=== PATIENT | female | born 1990 | race American Indian/Alaskan Native ===

== ENCOUNTER 2017-07-27 00:34 | Emergency (ER) | payer BC ==
[2017-07-27 01:19] VITALS: BP 131/85
[2017-07-27] MEDS ORDERED: PEPCID IV ONE (01:40)
[2017-07-27] MEDS ORDERED: ZOFRAN IV ONE (01:58)
--- NOTE | 2017-07-27 03:02 | Emergency Department Report ---
HPI - General Chief Complaint: Allergic Reaction Time Seen by Provider: 07/27/17 01:37 - HPI HPI: Pt is a 26 yo female here for allergic reaction. pt states she began with the rash all over her body and is not sure what caused it this time. pt states that she had no trouble breathing, but initally did have some chest tightness that she stated resolved. Pt denied any sensation of tongue swelling . Pt states she already takes Pepcid daily and is concerned about taking Prednisone because she states it makes her blood sugar go up but she realizes that it will help her allergic urticaria as she states this happens often. Pt denied ever seeing an mix crusher operator about this problem. ED Past Medical Hx - Past Medical History Previous Medical History?: Yes Hx Diabetes: Yes (Not taking any medications) - Surgical History Past Surgical History?: No - Social History Smoking Status: Never Smoker Substance Use Type: None - Medications Home Medications: Home Medications Medication Instructions Recorded Confirmed Last Taken Type Famotidine [Pepcid] 20 mg PO DAILY #5 tablet 07/27/17 Unknown Rx Prednisone 50 mg PO DAILY #5 tablet 07/27/17 Unknown Rx diphenhydrAMINE [Benadryl CAP] 50 mg PO Q8HR #15 capsule 07/27/17 Unknown Rx ED Review of Systems ROS: Stated complaint: ALLERGIC REACTION Other details as noted in HPI Comment: All other systems reviewed and negative Respiratory: no symptoms reported Cardiovascular: chest pain (resolved) Skin: rash, pruritus Physical Exam - Physical Exam Vital Signs: Vital Signs 07/27/17 07/27/17 07/27/17 00:54 01:00 01:14 Temperature 97.8 F Pulse Rate 98 H Respiratory 18 18 Rate Blood Pressure 131/85 131/85 O2 Sat by Pulse 88 100 99 Oximetry General: PE: awake alert nt female in no distress Skin: diffuse urticaria ; with excoriations HEENT: normocephalic, eyes:eomi, ears: patent Lungs:clear Heart: rrr Abd: soft, nd +Bs, nt Ext: dp pulses 2+; NO EDEMA Body Four View: 1 - urticaria 2 - urticaria 3 - urticaria ED Course Vital Signs 07/27/17 07/27/17 07/27/17 00:54 01:00 01:14 Temperature 97.8 F Pulse Rate 98 H Respiratory 18 18 Rate Blood Pressure 131/85 131/85 O2 Sat by Pulse 88 100 99 Oximetry Critical care attestation.: If time is entered above; I have spent that time in minutes in the direct care of this critically ill patient, excluding procedure time. ED Disposition Clinical Impression: Urticaria Disposition: - TO HOME OR SELFCARE Condition: Stable Instructions: Urticaria (ED) Additional Instructions: return sooner if worse or if further concerns and be sure to follow up with your primary care doctor or the referral physician given here; be aware that the Prednisone may make your blood sugar go up; continue with your current daily Pepcid dose for 5 days Prescriptions: diphenhydrAMINE [Benadryl CAP] 50 mg PO Q8HR #15 capsule Famotidine [Pepcid] 20 mg PO DAILY #5 tablet Prednisone 50 mg PO DAILY #5 tablet Referrals: LUIZ JERRY MD [Staff Physician] - 2-3 Days PRIMARY CAREMD [Primary Care Provider] - 3-5 Days
== END 2017-07-27 03:55 | disposition home or self-care (01) ==
LOC: ED 00:34
DX: L50.9 Urticaria, unspecified (principal); E11.9 Type 2 diabetes mellitus without complications
CPT/HCPCS: 96374; 96375; 99283; J2405; J2930

== ENCOUNTER 2018-01-20 11:30 | Emergency (ER) | payer SELFPAY ==
--- NOTE | 2018-01-20 12:25 | Emergency Department Report ---
Blank Doc - Documentation Documentation: Patient is 27-year-old black female who is presenting with vaginal bleeding. Patient states she is approximately 8 weeks and last night started with spotting that has now progressed to full on vaginal bleeding. Patient has no dizziness at this time. Patient does have some lower abdominal crampiness. Patient will be given ultrasound we will also check a beta Quant. Patient does not know her blood type which will also be checked as well.
[2018-01-20 13:14] LABS: Bacteria,Urine 1+ /HPF (Negative); Bilirubin,Urine NEG (Negative); Blood,Urine SM (Negative); Color,Urine Yellow (Yellow); Mucus,Urine 2+ /HPF; Sperm,Urine FEW /HPF (NP); Urobilinogen,Urine < 2.0 mg/dL (<2.0)
--- NOTE | 2018-01-20 15:11 | Emergency Department Report ---
ED HPI - General Chief complaint: Vaginal Bleeding Stated complaint: MISCARRAGE Time Seen by Provider: 01/20/18 12:20 Source: patient Mode of arrival: Ambulatory Limitations: No Limitations - History of Present Illness Initial comments: This is a 27 y.o. female that presents with vaginal bleeding for 2 days. Patient went to [place] 01/12/2018 for severe constipation and this toe diagnosed with 8 weeks gestation. She noticed spotting yesterday with each white but today on waking up she noticed increased bleeding and decided to come in. Patient is worried possibly miscarriage, because she has had 2 miscarriages in the past. Reports symptoms presenting as prior miscarriages did. Menstrual period was 10/09/2017. A2. Patient reports cramping, vaginal bleeding, and nausea and vomiting. Denies fever, chest pain, shortness of breath, frequency, urgency, and dysuria. MD Complaint: vaginal bleeding -: days(s) (2 days) Radiation: none Severity: moderate Severity scale (0 -10): 7 Quality: cramping Consistency: intermittent Improves with: none Worsens with: none Associated symptoms: nausea/vomiting, vaginal bleeding, abdominal pain (cramping ). denies: vaginal discharge, dysuria, headache, vision changes, malaise, dysparuenia, rash, seizure, shortness of breath, syncope, weakness Vaginal bleeding: light :: Yes Number of weeks : 8 OB History - Current : no complications OB History - Previous Pregnancies: miscarriage (x 2) Last menstrual period: 10/09/17 Pre- care: none - Related Data : 3 Para: 0 Ab: 2 Previous Rx's Medication Instructions Recorded Last Taken Type Famotidine [Pepcid] 20 mg PO DAILY #5 tablet 07/27/17 Unknown Rx Prednisone 50 mg PO DAILY #5 tablet 07/27/17 Unknown Rx diphenhydrAMINE [Benadryl CAP] 50 mg PO Q8HR #15 capsule 07/27/17 Unknown Rx Allergies Allergy/AdvReac Type Severity Reaction Status Date / Time No Known Allergies Allergy Unverified 07/03/16 10:46 ED Review of Systems ROS: Stated complaint: MISCARRAGE Other details as noted in HPI Constitutional: denies: chills, fever Respiratory: denies: cough, shortness of breath, wheezing Cardiovascular: denies: chest pain, palpitations Gastrointestinal: abdominal pain (cramping), nausea, vomiting. denies: diarrhea Neurological: denies: headache, weakness, paresthesias Psychiatric: denies: anxiety, depression ED Past Medical Hx - Past Medical History Previous Medical History?: Yes Hx Diabetes: Yes (Not taking any medications) Additional medical history: Miscarriage x 2, Left ankle and foot pain - Surgical History Past Surgical History?: No - Social History Smoking Status: Never Smoker Substance Use Type: None - Medications Home Medications: Home Medications Medication Instructions Recorded Confirmed Last Taken Type Famotidine [Pepcid] 20 mg PO DAILY #5 tablet 07/27/17 Unknown Rx Prednisone 50 mg PO DAILY #5 tablet 07/27/17 Unknown Rx diphenhydrAMINE [Benadryl CAP] 50 mg PO Q8HR #15 capsule 07/27/17 Unknown Rx ED Physical Exam - General Limitations: No Limitations General appearance: alert, in no apparent distress, obese - Respiratory Respiratory exam: Present: normal lung sounds bilaterally. Absent: respiratory distress - Cardiovascular Cardiovascular Exam: Present: regular rate, normal rhythm, normal heart sounds. Absent: systolic murmur, diastolic murmur, rubs, gallop - GI/Abdominal GI/Abdominal exam: Present: soft, normal bowel sounds - Neurological Exam Neurological exam: Present: alert, oriented X3, normal gait - Psychiatric Psychiatric exam: Present: normal affect, normal mood - Skin Skin exam: Present: warm, dry, intact, normal color. Absent: rash ED Course Vital Signs 01/20/18 11:35 Temperature 97.9 F Pulse Rate 93 H Respiratory 18 Rate Blood Pressure 150/82 O2 Sat by Pulse 100 Oximetry ED Medical Decision Making - Radiology Data Radiology results: report reviewed Transvaginal and OB US: Single viable intrauterine gestation. - Medical Decision Making This is a 27 y.o. Female presents with vaginal bleeding x 2 days. She is 8 weeks gestation. A2. Established OB patient at [place], but she doesn't have a specific physician there. First appointment 01/29/2018. Patient examined in fast track by me and Dr. Polanco. Obtained UA, hcg quant, and OB US. HCG 70756. US obtained and read by radiologist. Single viable intrauterine gestation. Patient informed of results. Advised to have repeat HCG quant and US in 24-48 hours if bleeding increase. Follow up with FRONT OFFICE MANAGER in 24-48 hours. Critical care attestation.: If time is entered above; I have spent that time in minutes in the direct care of this critically ill patient, excluding procedure time. ED Disposition Clinical Impression: Vaginal bleeding affecting early Disposition: TO HOME OR SELFCARE Is pt being admited?: No Does the pt Need Aspirin: No Condition: Stable Instructions: (ED), Threatened Miscarriage (ED) Additional Instructions: Have repeat HCG quant and US in 24-48 hours. Follow up with FRONT OFFICE MANAGER in 24-48 hours. HCG quant 67860 today. Referrals: MICHELLE SHAH MD [Staff Physician] - 3-5 Days [facility] [Provider Group] - 3-5 Days [facility] [Provider Group] - 3-5 Days Forms: Work/School Release Form(ED) Time of Disposition: 16:08 Print Language: GEORGIAN
--- NOTE | 2018-01-20 15:16 | Ultrasound Report ---
Transvaginal sonography: History: Vaginal bleeding. Findings: Uterus measures 9.9 x 6.2 x 7.1 cm. Single intrauterine gestation is noted. CRL of the fetus 20.3 mm corresponding to 8 weeks and 4 days of gestation. Ultrasound gestational age 8weeks and 4 days. Right ovary 2.4 x 2 x 2.4 cm. Left ovary 2.5 x 2 x 1.3 cm. No mass. heart rate 176 per minute. Impression: Single viable intrauterine gestation.
[2018-01-20 16:37] VITALS: BP 132/80
== END 2018-01-20 16:38 | disposition home or self-care (01) ==
LOC: ED 11:30
DX: O46.91 Antepartum hemorrhage, unspecified, first trimester (principal); E11.9 Type 2 diabetes mellitus without complications; Z3A.08 8 weeks gestation of pregnancy
CPT/HCPCS: 36415; 76801; 76817; 81001; 84702; 86900; 86901

== ENCOUNTER 2018-03-10 12:18 | Observation (INO) | payer MEDICAID ==
[2018-03-10] MEDS ORDERED: TYLENOL PO PRN (15:54)
[2018-03-10] MEDS ORDERED: COLACE PO PRN (15:54)
[2018-03-10] MEDS ORDERED: HumuLIN R SUB-Q ONE (15:57)
--- NOTE | 2018-03-10 16:05 | History and Physical Report ---
History of Present Illness Date of examination: 03/10/18 Date of admission: 03/10/18 12:53 Chief complaint: 15 weeks gestation with hyperglycemia. History of present illness: Patient is a 27 year old , LMP 10/17/17, EDC 08/28/18 at 15 weeks gestation who was sent from the office for elevated blood glucose. She has pre- gestational diabetes type 2, diagnosed over a year ago. She has not followed up with any doctor or been monitoring her glucose. She was given glucose monitoring supplies at [employer]. Her fasting glucose has been in the 250's and 2-hr pP in the 160-300's. Her HbA1C was 7.3. She was seen at [facility] and had ultrasound. Past History Past Medical History: diabetes (obesity) Past Surgical History: D&C ACCOUNTANT COST History: other (SAB x 2) Family/Genetic History: diabetes Social history: no significant social history - Obstetrical History Expected Date of Delivery: 08/28/18 Actual Gestation: 15 Week(s) 4 Day(s) : 3 Spontaneous Abortions: 2 Medications and Allergies Allergies Allergy/AdvReac Type Severity Reaction Status Date / Time No Known Allergies Allergy Unverified 07/03/16 10:46 Home Medications Medication Instructions Recorded Confirmed Last Taken Type Famotidine [Pepcid] 20 mg PO DAILY #5 tablet 07/27/17 Unknown Rx Prednisone 50 mg PO DAILY #5 tablet 07/27/17 Unknown Rx diphenhydrAMINE [Benadryl CAP] 50 mg PO Q8HR #15 capsule 07/27/17 Unknown Rx - Vital Signs Vital signs: Vital Signs Temp Pulse Resp BP 98.1 F 91 H 20 140/71 03/10/18 13:30 03/10/18 13:30 03/10/18 13:30 03/10/18 13:30 Temp Pulse Resp BP Pulse Ox 98.1 F 91 H 20 140/71 03/10/18 13:30 03/10/18 13:30 03/10/18 13:30 03/10/18 13:30 - Physical Exam Cardiovascular: Normal S1, Normal S2 Lungs: Positive: Clear to auscultation Vulva: both: normal Deep Tendon Reflex Grade: Normal +2 Results All other labs normal. Assessment and Plan - Patient Problems (1) 15 weeks gestation of Current Visit: Yes Status: Acute (2) Type 2 diabetes mellitus affecting in second trimester, antepartum Current Visit: Yes Status: Acute (3) Uncontrolled blood glucose Current Visit: Yes Status: Acute Plan to address problem: Will admit patient. Labs. ADA diet. Nutrition counseling. Insulin sliding scale. Sonogram for viability. IV hydration.
[2018-03-10 17:12] LABS: Basophils % (Auto) 0.2 % (0.0-1.8); Eosinophils # (Auto) 0.1 K/mm3 (0.0-0.4); Eosinophils % (Auto) 1.1 % (0.0-4.3); Hematocrit 34.3 % (30.3-42.9); Hemoglobin 11.5 gm/dl (10.1-14.3); Lymphocytes # (Auto) 2.1 K/mm3 (1.2-5.4); Lymphocytes % (Auto) 28.3 % (13.4-35.0); Mean Corpuscular HGB Conc 34 % (30-34); Mean Corpuscular Hemoglobin 28 pg (28-32); Mean Corpuscular Volume 83 fl (79-97); Monocytes # (Auto) 0.5 K/mm3 (0.0-0.8); Monocytes % (Auto) 6.9 % (0.0-7.3); Platelet Count 208 K/mm3 (140-440); Red Blood Count 4.14 M/mm3 (3.65-5.03); Red Cell Distribution Width 14.4 % (13.2-15.2)
--- NOTE | 2018-03-10 17:19 | Ultrasound Report ---
FINAL REPORT EXAM: US OB LIMITED HISTORY: viability TECHNIQUE: Limited obstetrical ultrasound PRIORS: None. FINDINGS: LMP: 11/21/2017 clinical Age: 15 w 4d LMP EDC 08/28/2018 Presentation: Breech Activity: Monitored Placental location: Posterior Placental grade: 0 Cardiac motion: 149 BPM using M-mode doppler Amniotic Fluid Volume: Adequate IMPRESSION: Single intrauterine viable with an approximate age of 15 weeks 4 days.
[2018-03-10 17:32] LABS: Alanine Aminotransferase 19 units/L (7-56); Albumin 3.6 g/dL (3.9-5); BUN/Creatinine Ratio 15; Blood Urea Nitrogen 6 mg/dL (7-17); Calcium 8.8 mg/dL (8.4-10.2); Hemolysis Index 27
[2018-03-10] MEDS ORDERED: D50W (25GM) Syringe IV PRN (17:59)
[2018-03-10 21:01] LABS: Bacteria,Urine 1+ /HPF (Negative); Bilirubin,Urine NEG (Negative); Blood,Urine NEG (Negative); Color,Urine Yellow (Yellow); Mucus,Urine FEW /HPF; Protein,Urine <15 mg/dL mg/dL (Negative); Urobilinogen,Urine < 2.0 mg/dL (<2.0)
[2018-03-10] MEDS ORDERED: HumaLOG SUB-Q SCH (22:00)
[2018-03-11] MEDS ORDERED: HumuLIN R ONE (07:59)
[2018-03-11] MEDS: PRENATAL VITAMIN PO SCH (11:00)
[2018-03-11] MEDS ORDERED: HumuLIN R SUB-Q ONE (11:01)
--- NOTE | 2018-03-11 13:45 | Progress Note ---
Assessment and Plan A Uncontrolled diabetes mellitus Obesity 15 weeks gestation P Continue current glucose sliding scale Monitor blood glucose fasting and 2hr PP Dietary consult [facility] consult Start NPH 10 units in AM. Calculated glucose regimen ( AM NPH 38 units; reg 20 units PM NPH 15 units reg 15 units). However patient not eating same diet at hospital as she has been eating at home so will not start full dose insulin (89 units) until more glucose readings available. Subjective - Subjective Date of service: 03/11/18 Principal diagnosis: Uncontrolled pre-gestational diabetes mellitus Patient reports: movement normal, no new complaints, no loss of fluid, no vaginal bleeding, no contractions Objective - Vital Signs Vital Signs: Vital Signs - 12hr 03/11/18 03/11/18 06:36 09:53 Temperature 98.9 F Pulse Rate 66 Respiratory 20 18 Rate Blood Pressure 136/73 [Right] - Labs Labs: Abnormal Labs 03/10/18 03/10/18 03/10/18 16:32 16:36 21:32 Sodium 134 L Carbon Dioxide 18 L BUN 6 L Creatinine 0.4 L POC Glucose 106 H Hemoglobin A1c 7.2 H Albumin 3.6 L 03/11/18 03/11/18 07:40 10:43 Sodium Carbon Dioxide BUN Creatinine POC Glucose 138 H 158 H Hemoglobin A1c Albumin Laboratory Results - last 24 hr 03/10/18 03/10/18 03/10/18 13:59 16:32 16:32 WBC 7.4 RBC 4.14 Hgb 11.5 Hct 34.3 MCV 83 MCH 28 MCHC 34 RDW 14.4 Plt Count 208 Lymph % (Auto) 28.3 [place] % (Auto) 6.9 Eos % (Auto) 1.1 Baso % (Auto) 0.2 Lymph # 2.1 [place] # 0.5 Eos # 0.1 Baso # 0.0 Seg Neutrophils % 63.5 Seg Neutrophils # 4.7 Sodium 134 L Potassium 3.7 Chloride 100.6 Carbon Dioxide 18 L Anion Gap 19 BUN 6 L Creatinine 0.4 L Estimated GFR > 60 BUN/Creatinine Ratio 15 Glucose 89 POC Glucose 97 Hemoglobin A1c Calcium 8.8 Total Bilirubin 0.20 AST 23 ALT 19 Alkaline Phosphatase 49 Total Protein 6.4 Albumin 3.6 L Albumin/Globulin Ratio 1.3 Urine Color Urine Turbidity Urine pH Ur Specific [place] Urine Protein Urine Glucose (UA) Urine Ketones Urine Blood Urine Nitrite Urine Bilirubin Urine Urobilinogen Ur Leukocyte Esterase Urine WBC (Auto) Urine RBC (Auto) U Epithel Cells (Auto) Urine Bacteria (Auto) Urine Mucus 03/10/18 03/10/18 03/10/18 16:36 20:03 21:32 WBC RBC Hgb Hct MCV MCH MCHC RDW Plt Count Lymph % (Auto) [place] % (Auto) Eos % (Auto) Baso % (Auto) Lymph # [place] # Eos # Baso # Seg Neutrophils % Seg Neutrophils # Sodium Potassium Chloride Carbon Dioxide Anion Gap BUN Creatinine Estimated GFR BUN/Creatinine Ratio Glucose POC Glucose 106 H Hemoglobin A1c 7.2 H Calcium Total Bilirubin AST ALT Alkaline Phosphatase Total Protein Albumin Albumin/Globulin Ratio Urine Color Yellow Urine Turbidity Clear Urine pH 6.0 Ur Specific [place] 1.009 Urine Protein <15 mg/dl Urine Glucose (UA) Neg Urine Ketones 20 Urine Blood Neg Urine Nitrite Neg Urine Bilirubin Neg Urine Urobilinogen < 2.0 Ur Leukocyte Esterase Tr Urine WBC (Auto) 3.0 Urine RBC (Auto) 3.0 U Epithel Cells (Auto) 4.0 Urine Bacteria (Auto) 1+ Urine Mucus Few 03/11/18 03/11/18 07:40 10:43 WBC RBC Hgb Hct MCV MCH MCHC RDW Plt Count Lymph % (Auto) [place] % (Auto) Eos % (Auto) Baso % (Auto) Lymph # [place] # Eos # Baso # Seg Neutrophils % Seg Neutrophils # Sodium Potassium Chloride Carbon Dioxide Anion Gap BUN Creatinine Estimated GFR BUN/Creatinine Ratio Glucose POC Glucose 138 H 158 H Hemoglobin A1c Calcium Total Bilirubin AST ALT Alkaline Phosphatase Total Protein Albumin Albumin/Globulin Ratio Urine Color Urine Turbidity Urine pH Ur Specific [place] Urine Protein Urine Glucose (UA) Urine Ketones Urine Blood Urine Nitrite Urine Bilirubin Urine Urobilinogen Ur Leukocyte Esterase Urine WBC (Auto) Urine RBC (Auto) U Epithel Cells (Auto) Urine Bacteria (Auto) Urine Mucus - Results US- obstetric: report reviewed (FHT 149. Breech. Plac Posterior)
[2018-03-11] MEDS ORDERED: D50W (25GM) Syringe IV PRN (13:49)
--- NOTE | 2018-03-11 14:21 | Consultation ---
History of Present Illness Consult date: 03/11/18 Reason for consult: other (Diabetes Mellitus) History of present illness: She is a 27yo, , at 15 weeks gestation, admitted to [facility] on 03/10/18 due to poorly controlled Diabetes. She states "I was never diagnosed as a diabetic until she became ." She report she has been performing home glucose monitoring4 times daily, with elevated results "my fasting could be in the 120s and my after meals could be as high as 200. I never received teaching so I just ate my fruits and vegetables." She admits to home cooking "like spaghetti and rice and chicken." Recent Hemoglobin A1c in hospital is 7.2 She is being followed by [facility] for Morbid Obesity and now consulted for DM management. She denies leaking of fluid, bleeding, and cramping/contractions. 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 x 2) Family/Genetic History: diabetes - Obstetrical History : 3 Medications and Allergies Allergies Allergy/AdvReac Type Severity Reaction Status Date / Time No Known Allergies Allergy Verified 03/10/18 16:20 Home Medications Medication Instructions Recorded Confirmed Last Taken Type Vit-Fe Fumar-FA [ 1 tab PO QDAY 03/11/18 03/11/18 03/09/18 21: 00 History Vitamin] 1 Active Meds: Active Medications Acetaminophen (Tylenol) 650 mg PO Q4H PRN PRN Reason: Pain MILD(1-3)/Fever >100.5/SCHERER Last Admin: 03/10/18 23:19 Dose: 650 mg Dextrose (D50w (25gm) Syringe) 50 ml IV PRN PRN PRN Reason: Hypoglycemia Dextrose (D50w (25gm) Syringe) 50 ml IV PRN PRN PRN Reason: Hypoglycemia Docusate Sodium (Colace) 100 mg PO Q12H PRN PRN Reason: Constipation Insulin Human Lispro (Humalog) 0 unit SUB-Q ACHS RAMON; Protocol Last Admin: 03/10/18 22:00 Dose: Not Given Insulin Human NPH (Humulin N) 10 unit SUB-Q QDDIAB RAMON Multivitamins/Iron/Calcium ( Vitamin) 1 each PO QDAY RAMON Last Admin: 03/11/18 11:00 Dose: Not Given Review of Systems Constitutional: other (Denies fever, chills, headaches) Eyes: deferred Ears, nose, mouth and throat: deferred Cardiovascular: other (Denies chest pain, palpitations, SOB, and edema) Respiratory: other (Denies SOB, wheezing, coughing) Breasts: deferred Gastrointestinal: other (Denies constipation, diarrhea, abdominal pain) Genitourinary: deferred Rectal Exam: deferred Neurological: other (Denies headaches, visual disturbances) Endocrine: high blood sugars - Vital Signs Vital signs: Vital Signs Temp Pulse Resp BP 98.1 F 91 H 20 140/71 03/10/18 13:30 03/10/18 13:30 03/10/18 13:30 03/10/18 13:30 Temp Pulse Resp BP Pulse Ox 98.9 F 66 18 136/73 03/11/18 06:36 03/11/18 06:36 03/11/18 09:53 03/11/18 06:36 - Physical Exam Breasts: Positive: deferred Cardiovascular: Regular rate, Normal S1, Normal S2 Lungs: Positive: Clear to auscultation Abdomen: Positive: soft (nontender, obese, gravid) Results Result Diagrams: 03/10/18 16:32 03/10/18 16:32 Abnormal lab results 03/10/18 03/10/18 03/10/18 Range/Units 16:32 16:36 21:32 Sodium 134 L (137-145) mmol/L Carbon Dioxide 18 L (22-30) mmol/L BUN 6 L (7-17) mg/dL Creatinine 0.4 L (0.7-1.2) mg/dL POC Glucose 106 H (70-105) Hemoglobin A1c 7.2 H (4-6) % Albumin 3.6 L (3.9-5) g/dL 03/11/18 03/11/18 Range/Units 07:40 10:43 Sodium (137-145) mmol/L Carbon Dioxide (22-30) mmol/L BUN (7-17) mg/dL Creatinine (0.7-1.2) mg/dL POC Glucose 138 H 158 H (70-105) Hemoglobin A1c (4-6) % Albumin (3.9-5) g/dL All other labs normal. Assessment and Plan A- IUP at 15.5 weeks gestation Poorly controlled DM- currently managed on sliding scale insulin and accuchecks fasting and 2hrs postprandial levels (106, 138, 158) VSS Morbidly Obese I discussed with Ms. Martinez increased risks with poorly controlled DM in . I discussed concerns of potentially developing hypertension, vascular disease, as well as kidney disease. I also discussed the potential concern for Macrosomia, Shoulder Dystocia, hypoglycemia, and IUFD, if glucose levels are not well controlled. She verbalized understanding. I reviewed ADA diet recommendations with pt and stated she will have formal Diabetic Teaching at follow up appointment with [facility] upon discharge. I also discussed the need to exercise at 15minutes daily to help assist in regulating blood glucose levels, in addition to diet and insulin regimen. She verbalized understanding. P- Monitor glucose levels 4 times daily (fasting, 2 hr after breakfast, 2 hr after lunch, and 2 hr after dinner) Continue with sliding scale coverage 2200 calorie ADA diet (inpatient and outpatient)- ( please no foods or drinks with high sugar content Once pt is discharged, she is to follow up with [facility] as soon as possible for formal Diabetic Teaching Once blood glucose levels are regulated, on discharge, pt to initiate Insulin reigmen (QAM 20units NPH/10units Regular insulin, Qdinner 10units Regular insulin, QHS 10units NPH. For any questions or concerns, please call sales and leasing consultant MD with [facility] (Dr. Castano). Thank you for your consult.
--- NOTE | 2018-03-12 08:59 | Progress Note ---
Assessment and Plan - Patient Problems (1) 15 weeks gestation of Onset Date: 03/12/18 Current Visit: Yes Status: Acute Plan to address problem: A: IUP @ 15+ weeks Gestational DM - uncontrolled Obesity P: As per [facility] Monitor glucose levels 4 times daily (fasting, 2 hr after breakfast, 2 hr after lunch, and 2 hr after dinner) Continue with sliding scale coverage 2200 calorie ADA diet (inpatient and outpatient)- ( please no foods or drinks with high sugar content Once pt is discharged, she is to follow up with [facility] as soon as possible for formal Diabetic Teaching Once blood glucose levels are regulated, on discharge, pt to initiate Insulin regimen (QAM 20units NPH/10units Regular insulin, Qdinner 10units Regular insulin, QHS 10units NPH. (2) Type 2 diabetes mellitus affecting in second trimester, antepartum Onset Date: 03/12/18 Current Visit: Yes Status: Acute (3) Uncontrolled blood glucose Onset Date: 03/12/18 Current Visit: Yes Status: Acute Subjective - Subjective Date of service: 03/12/18 Principal diagnosis: Uncontrolled pre-gestational diabetes mellitus Interval history: Pt is feeling well without complaints. Patient reports: movement normal, no new complaints, no loss of fluid, no vaginal bleeding, no contractions Objective - Vital Signs Vital Signs: Vital Signs - 12hr 03/12/18 06:36 Temperature 98.7 F Pulse Rate 86 Respiratory 20 Rate Blood Pressure 118/60 O2 Sat by Pulse 98 Oximetry - Exam Abdomen: Present: normal appearance, soft - Labs Labs: Abnormal Labs 03/10/18 03/10/18 03/10/18 16:32 16:36 21:32 Sodium 134 L Carbon Dioxide 18 L BUN 6 L Creatinine 0.4 L POC Glucose 106 H Hemoglobin A1c 7.2 H Albumin 3.6 L 03/11/18 03/11/18 03/11/18 07:40 10:43 21:04 Sodium Carbon Dioxide BUN Creatinine POC Glucose 138 H 158 H 117 H Hemoglobin A1c Albumin 03/12/18 06:44 Sodium Carbon Dioxide BUN Creatinine POC Glucose 130 H Hemoglobin A1c Albumin Laboratory Results - last 24 hr 03/10/18 03/11/18 03/11/18 16:36 10:43 15:01 POC Glucose 158 H 103 Hemoglobin A1c 7.2 H 03/11/18 03/12/18 21:04 06:44 POC Glucose 117 H 130 H Hemoglobin A1c
[2018-03-12] MEDS: HumaLOG SUB-Q SCH ×2 (10:30→15:30)
[2018-03-12] MEDS: PRENATAL VITAMIN PO SCH (10:30)
[2018-03-13] MEDS: HumaLOG SUB-Q SCH ×2 (11:12→14:20)
--- NOTE | 2018-03-13 13:00 | Progress Note ---
Assessment and Plan - Patient Problems (1) 15 weeks gestation of Onset Date: 03/12/18 Current Visit: Yes Status: Acute Plan to address problem: A: IUP @ 15+ weeks Gestational DM - uncontrolled Obesity P: As per [facility] Monitor glucose levels 4 times daily (fasting, 2 hr after breakfast, 2 hr after lunch, and 2 hr after dinner) Continue with sliding scale coverage 2200 calorie ADA diet (inpatient and outpatient)- ( please no foods or drinks with high sugar content Once pt is discharged, she is to follow up with [facility] as soon as possible for formal Diabetic Teaching Once blood glucose levels are regulated, on discharge, pt to initiate Insulin regimen (QAM 20units NPH/10units Regular insulin, Qdinner 10units Regular insulin, QHS 10units NPH. (2) Type 2 diabetes mellitus affecting in second trimester, antepartum Onset Date: 03/12/18 Current Visit: Yes Status: Acute (3) Uncontrolled blood glucose Onset Date: 03/12/18 Current Visit: Yes Status: Acute Subjective - Subjective Date of service: 03/13/18 Principal diagnosis: Uncontrolled pre-gestational diabetes mellitus Interval history: Pt is feeling well without complaints. Patient reports: movement normal, no new complaints, no loss of fluid, no vaginal bleeding, no contractions Objective - Vital Signs Vital Signs: Vital Signs - 12hr 03/13/18 06:50 Temperature 98.5 F Pulse Rate 82 Respiratory 20 Rate Blood Pressure 148/69 [Right] O2 Sat by Pulse 98 Oximetry - Exam Breasts: deferred Cardiovascular: Regular rate Lungs: Clear to auscultation Abdomen: Present: normal appearance Uterine Contraction Monitor Mode: Palpation - Labs Labs: Abnormal Labs 03/10/18 03/10/18 03/10/18 16:32 16:36 21:32 Sodium 134 L Carbon Dioxide 18 L BUN 6 L Creatinine 0.4 L POC Glucose 106 H Hemoglobin A1c 7.2 H Albumin 3.6 L 03/11/18 03/11/18 03/11/18 07:40 10:43 21:04 Sodium Carbon Dioxide BUN Creatinine POC Glucose 138 H 158 H 117 H Hemoglobin A1c Albumin 03/12/18 03/12/18 03/12/18 06:44 10:27 15:30 Sodium Carbon Dioxide BUN Creatinine POC Glucose 130 H 138 H 111 H Hemoglobin A1c Albumin 03/13/18 03/13/18 07:01 10:53 Sodium Carbon Dioxide BUN Creatinine POC Glucose 124 H 177 H Hemoglobin A1c Albumin Laboratory Results - last 24 hr 03/12/18 03/12/18 03/13/18 15:30 22:21 07:01 POC Glucose 111 H 93 124 H 03/13/18 10:53 POC Glucose 177 H
[2018-03-14 14:29] VITALS: BP 133/74
--- NOTE | 2018-03-14 14:31 | Progress Note ---
Assessment and Plan - Patient Problems (1) 15 weeks gestation of Onset Date: 03/12/18 Current Visit: Yes Status: Acute (2) Type 2 diabetes mellitus affecting in second trimester, antepartum Onset Date: 03/12/18 Current Visit: Yes Status: Acute (3) Uncontrolled blood glucose Onset Date: 03/12/18 Current Visit: Yes Status: Acute Plan to address problem: [facility] saw the patient. She was advised on following an ADA diet. She will follow up with [facility] this week. Nutrition counseling was done. Patient was counselled to keep FS monitoring 4 times a day. Insulin regimen at home was discussed with the patient. Rx given for regular and NPH insulin. Method of usage and signs of hypoglycemia were discussed with her. I asked her to follow with [employer] [employer] and [facility] this week. Subjective - Subjective Date of service: 03/14/18 Principal diagnosis: Uncontrolled pre-gestational diabetes mellitus Interval history: Patient is a 27 year old , LMP 10/17/17, EDC 08/28/18 at 15 weeks and 4 days gestation who was sent from the office for elevated blood glucose. She has pre-gestational diabetes type 2, diagnosed over a year ago. She has not followed up with any doctor or been monitoring her glucose. She was given glucose monitoring supplies at [employer] [employer]. Her fasting glucose has been in the 250's and 2-hr pP in the 160-300's. Her HbA1C was 7.3. She was seen at [facility] and had ultrasound. She has been on a sliding scale since admission. [facility] consult was done. Patient reports: movement normal, no new complaints, no loss of fluid, no vaginal bleeding, no contractions Objective - Vital Signs Vital Signs: Vital Signs - 12hr 03/14/18 05:22 Temperature 98.8 F Pulse Rate 83 Respiratory 20 Rate Blood Pressure 136/68 O2 Sat by Pulse 100 Oximetry - Exam Cardiovascular: Normal S1, Normal S2 Lungs: Clear to auscultation Vulva: both: normal Uterine Contraction Pattern: Absent - Labs Labs: Abnormal Labs 03/10/18 03/10/18 03/10/18 16:32 16:36 21:32 Sodium 134 L Carbon Dioxide 18 L BUN 6 L Creatinine 0.4 L POC Glucose 106 H Hemoglobin A1c 7.2 H Albumin 3.6 L 03/11/18 03/11/18 03/11/18 07:40 10:43 21:04 Sodium Carbon Dioxide BUN Creatinine POC Glucose 138 H 158 H 117 H Hemoglobin A1c Albumin 03/12/18 03/12/18 03/12/18 06:44 10:27 15:30 Sodium Carbon Dioxide BUN Creatinine POC Glucose 130 H 138 H 111 H Hemoglobin A1c Albumin 03/13/18 03/13/18 03/13/18 07:01 10:53 14:16 Sodium Carbon Dioxide BUN Creatinine POC Glucose 124 H 177 H 132 H Hemoglobin A1c Albumin 03/13/18 03/13/18 03/14/18 18:48 22:35 06:58 Sodium Carbon Dioxide BUN Creatinine POC Glucose 149 H 116 H 123 H Hemoglobin A1c Albumin 03/14/18 10:33 Sodium Carbon Dioxide BUN Creatinine POC Glucose 146 H Hemoglobin A1c Albumin Laboratory Results - last 24 hr 03/13/18 03/13/18 03/14/18 18:48 22:35 06:58 POC Glucose 149 H 116 H 123 H 03/14/18 03/14/18 10:33 13:56 POC Glucose 146 H 101 - Results US- obstetric: report reviewed
== END 2018-03-14 15:15 | disposition home or self-care (01) ==
LOC: UNDOADMIN 12:18 → 3A 12:18 → OB 12:53 → INTOOBSV 12:53
PROVIDERS: ADMIT Obstetrics & Gynecology; ATTEND Obstetrics & Gynecology
DX: O24.112 Pre-existing type 2 diabetes mellitus, in pregnancy, second trimester (principal); Z3A.15 15 weeks gestation of pregnancy
CPT/HCPCS: 36415; 76815; 80053; 81001; 82962; 83036; 85025; 96372; G0378; G0379; J1815

== ENCOUNTER 2018-04-29 12:05 | Observation (INO) | payer MEDICAID ==
[~2018-04-29 12:05] MED LIST: HumuLIN R SUB-Q SCH
--- NOTE | 2018-04-29 13:44 | History and Physical Report ---
History of Present Illness Date of examination: 04/29/18 Chief complaint: Elevated blood pressure Poorly controlled pre-gestational diabetic History of present illness: Patient is a 27yo, , at 22+5 weeks gestation who presents from the clinic for noted elevated BP; she is a [facility] patient. Essential history is patient with Pre-gestational diabetes status post prior admission on 03/10/2018 for poor control was seen in clinic today for follow-up care. Patient did not bring her sugar log, her insulin regimen appears to be Humulin 20 units a.m. and 10 units p.m., and Novolin insulin 10 units at dinner. Review of records in the hospital shows patient was meant to be discharged on QAM 20units NPH/10units Regular insulin, Qdinner 10units Regular insulin, QHS 10units NPH. On review, high blood pressure was noted to be elevated with a range 150 to 160s over 90s. She was therefore referred to the hospital for triage observation. Her [facility] visit is on 05/06/2018 She currently denies headache, scotomata or epigastric pain She denies leaking of fluid, bleeding, and cramping/contractions. On L&D, her blood pressure has been in the 140s to 180s/70-90's Past History Past Medical History: diabetes Past Surgical History: no surgical history, D&C Social history: single. denies: smoking - Obstetrical History Expected Date of Delivery: 08/28/18 Actual Gestation: 22 Week(s) 5 Day(s) : 3 Spontaneous Abortions: 2 Number of Living Children: 0 Medications and Allergies Allergies Allergy/AdvReac Type Severity Reaction Status Date / Time No Known Allergies Allergy Verified 03/10/18 16:20 Home Medications Medication Instructions Recorded Confirmed Last Taken Type Vit-Fe Fumar-FA [ 1 tab PO QDAY 03/11/18 03/11/18 03/09/18 21: 00 History Vitamin] 1 Aspirin [Aspirin BABY CHEW TAB] 81 mg PO QDAY #30 tab.chew 04/29/18 Unknown Rx Labetalol [Normodyne TAB] 200 mg PO BID #60 tablet 04/29/18 Unknown Rx Review of Systems Constitutional: no fever, no chills Eyes: no diplopia, no photophobia, no blind spots Cardiovascular: high blood pressure, no chest pain, no syncope, no shortness of breath, no dyspnea on exertion Respiratory: no cough, no cough with sputum, no shortness of breath, no dyspnea on exertion Gastrointestinal: no abdominal pain, no nausea, no vomiting, no heartburn, no indigestion Genitourinary: no vaginal bleeding, no vaginal discharge, no leakage of fluid, no contractions - Vital Signs Vital signs: Vital Signs Pulse BP 89 171/88 04/29/18 12:36 04/29/18 12:36 Temp Pulse Resp BP Pulse Ox 81 144/90 98 04/29/18 13:42 04/29/18 13:35 04/29/18 13:42 - Physical Exam Cardiovascular: Regular rate, Normal S1, Normal S2 Lungs: Positive: Clear to auscultation, Normal air movement Abdomen: Positive: normal appearance, soft. Negative: distention, tenderness, guarding, rigidity Genitourinary (Female): Positive: normal external genitalia Uterus: Negative: tender Extremities: Positive: normal Results All other labs normal. Assessment and Plan A: 27-year-old at 22+5 weeks with recent onset of elevated blood pressure - heart tones present Issues -Pregestational DM - poorly controlled -Obesity -Increasing BP -Normal HELLP labs on 03/10/18 -Social issues - patient apparently lives with mother in [place]. Can only come to clinic/[facility] once per month P: -24 hr observation -Obtain HELLP labs and baseline 24-hour urine protein -Start aspirin 81 mg daily -Start Labetalol 200 mg twice a day -Consider magnesium if blood pressure uncontrolled in severe range -Schedule repeat diabetic teaching -Start patient recommended outpatient insulin dosage from MFM QAM 20units NPH/ 10units Regular insulin, Qdinner 10units Regular insulin, QHS 10units NPH -Consider starting sliding scale insulin if not controlled with the above regimen - Patient Problems (1) 22 weeks gestation of Current Visit: Yes Status: Acute (2) Type 2 diabetes mellitus affecting in second trimester, antepartum Onset Date: 03/12/18 Current Visit: No Status: Acute (3) Elevated blood pressure affecting in second trimester, antepartum Current Visit: Yes Status: Acute
[2018-04-29] MEDS ORDERED: APRESOLINE IV PRN (13:56)
[2018-04-29] MEDS ORDERED: LACTATED RINGERS 1,000 ML IV SCH (14:00)
[2018-04-29] MEDS ORDERED: NORMODYNE PO SCH (14:00)
[2018-04-29 14:40] LABS: Hematocrit 32.2 % (30.3-42.9); Hemoglobin 10.8 gm/dl (10.1-14.3); Mean Corpuscular HGB Conc 34 % (30-34); Mean Corpuscular Hemoglobin 28 pg (28-32); Mean Corpuscular Volume 84 fl (79-97); Platelet Count 247 K/mm3 (140-440); Red Blood Count 3.82 M/mm3 (3.65-5.03); Red Cell Distribution Width 13.9 % (13.2-15.2)
[2018-04-29 15:09] LABS: Alanine Aminotransferase 14 units/L (7-56); Albumin 3.4 g/dL (3.9-5); BUN/Creatinine Ratio 13; Blood Urea Nitrogen 5 mg/dL (7-17); Calcium 9.1 mg/dL (8.4-10.2); Hemolysis Index 5
[2018-04-29 15:10] LABS: Bilirubin,Direct < 0.2 mg/dL (0-0.2)
[2018-04-29 16:46] LABS: Bacteria,Urine 1+ /HPF (Negative); Bilirubin,Urine NEG (Negative); Blood,Urine NEG (Negative); Calcium Oxalate Crystals,Urine 3+; Color,Urine Amber (Yellow); Mucus,Urine 3+ /HPF; Urobilinogen,Urine < 2.0 mg/dL (<2.0)
[2018-04-29 16:53] LABS: Amphetamine Screen,Urine PRESUMPTIVE NEGATIVE; Benzodiazepines Screen,Urine PRESUMPTIVE NEGATIVE; Cannabinoid Screen,Urine PRESUMPTIVE NEGATIVE; Cocaine Screen,Urine PRESUMPTIVE NEGATIVE; Methadone Screen,Urine PRESUMPTIVE NEGATIVE; Opiate Screen,Urine PRESUMPTIVE NEGATIVE
[2018-04-29] MEDS: HumuLIN R SUB-Q SCH (18:18)
[2018-04-29] MEDS: BABY ASPIRIN PO SCH (18:18)
[2018-04-29] MEDS ORDERED: BICITRA ONE (23:19)
[2018-04-29] MEDS ORDERED: BICITRA PO ONE (23:25)
[2018-04-30] MEDS: NORMODYNE PO SCH ×2 (05:43→18:38)
[2018-04-30] MEDS ORDERED: HumuLIN R SUB-Q SCH (08:00)
[2018-04-30] MEDS: BABY ASPIRIN PO SCH (10:20)
--- NOTE | 2018-04-30 11:27 | Progress Note ---
Assessment and Plan - Patient Problems (1) Elevated blood pressure affecting in second trimester, antepartum Current Visit: Yes Status: Acute Plan to address problem: Continue 24hr urine. Continue Labetolol PO. [facility], maternal medicine consult ordered- pending. (2) Type 2 diabetes mellitus affecting in second trimester, antepartum Onset Date: 03/12/18 Current Visit: No Status: Acute Plan to address problem: Continue BS monitoring. Continue insulin regimen. Subjective - Subjective Principal diagnosis: Gestational Hypertension Interval history: 27yo 22 6/7 weeks admitted for gestational hypertension in the severe range to evaluate for preeclampsia. She has a history of pregestational DM on AM 20N/10R PM 10N/10R. Her last HbgA1c in February was 7.2. Today she denies headaches or visual changes. She reports good movement, no vaginal bleeding and no loss of fluid. She is receiving insulin therapy and blood sugars fasting 110, 2hr PP <120. Her BPs are 120-140/60-70s on Labetolol 200mg PO BID. Objective - Vital Signs Vital Signs: Vital Signs - 12hr 04/29/18 04/29/18 04/29/18 23:30 23:36 23:39 Temperature Pulse Rate 95 H 85 Respiratory Rate Blood Pressure 140/75 Blood Pressure [Right] O2 Sat by Pulse 99 86 Oximetry 04/29/18 04/29/18 04/29/18 23:41 23:46 23:51 Temperature Pulse Rate 89 100 H 90 Respiratory Rate Blood Pressure Blood Pressure [Right] O2 Sat by Pulse 100 100 99 Oximetry 04/29/18 04/29/18 04/30/18 23:56 23:58 00:01 Temperature Pulse Rate 89 91 H 91 H Respiratory Rate Blood Pressure Blood Pressure [Right] O2 Sat by Pulse 99 94 99 Oximetry 04/30/18 04/30/18 04/30/18 00:06 00:10 00:11 Temperature Pulse Rate 98 H 93 H 99 H Respiratory Rate Blood Pressure 137/68 Blood Pressure [Right] O2 Sat by Pulse 100 100 Oximetry 04/30/18 04/30/18 04/30/18 00:13 00:17 00:20 Temperature 98.6 F Pulse Rate 98 H 91 H 114 H Respiratory Rate Blood Pressure Blood Pressure [Right] O2 Sat by Pulse 100 92 Oximetry 04/30/18 04/30/1804/30/18 00:21 00:26 00:31 Temperature Pulse Rate 84 84 85 Respiratory Rate Blood Pressure Blood Pressure [Right] O2 Sat by Pulse 99 99 98 Oximetry 04/30/18 04/30/18 04/30/18 00:37 00:39 00:42 Temperature Pulse Rate 84 85 86 Respiratory Rate Blood Pressure 115/55 Blood Pressure [Right] O2 Sat by Pulse 98 97 Oximetry 04/30/18 04/30/18 04/30/18 00:47 00:51 00:57 Temperature Pulse Rate 85 86 88 Respiratory Rate Blood Pressure Blood Pressure [Right] O2 Sat by Pulse 97 97 97 Oximetry 04/30/18 04/30/18 04/30/18 02:17 02:22 02:23 Temperature Pulse Rate 86 94 H 114 H Respiratory Rate Blood Pressure Blood Pressure [Right] O2 Sat by Pulse 99 97 89 Oximetry 04/30/18 04/30/18 04/30/18 02:27 02:32 02:37 Temperature Pulse Rate 89 89 88 Respiratory Rate Blood Pressure Blood Pressure [Right] O2 Sat by Pulse 98 98 99 Oximetry 04/30/18 04/30/18 04/30/18 02:39 02:42 02:47 Temperature Pulse Rate 92 H 94 H 92 H Respiratory Rate Blood Pressure 134/71 Blood Pressure [Right] O2 Sat by Pulse 98 98 Oximetry 04/30/18 04/30/18 04/30/18 02:52 02:57 03:02 Temperature Pulse Rate 94 H 92 H 92 H Respiratory Rate Blood Pressure Blood Pressure [Right] O2 Sat by Pulse 98 98 98 Oximetry 04/30/18 04/30/18 04/30/18 03:07 03:09 03:20 Temperature Pulse Rate 119 H 87 108 H Respiratory Rate Blood Pressure 124/61 Blood Pressure [Right] O2 Sat by Pulse 98 83 L Oximetry 04/30/18 04/30/18 04/30/18 03:25 03:30 03:35 Temperature Pulse Rate 86 78 89 Respiratory Rate Blood Pressure Blood Pressure [Right] O2 Sat by Pulse 99 98 97 Oximetry 04/30/18 04/30/18 04/30/18 03:39 03:40 04:08 Temperature Pulse Rate 100 H 100 H 111 H Respiratory Rate Blood Pressure 130/57 Blood Pressure [Right] O2 Sat by Pulse 99 77 L Oximetry 04/30/18 04/30/18 04/30/18 04:09 04:14 04:19 Temperature Pulse Rate 87 91 H 90 Respiratory Rate Blood Pressure 128/58 Blood Pressure [Right] O2 Sat by Pulse 77 L 99 99 Oximetry 04/30/18 04/30/18 04/30/18 04:24 04:29 04:34 Temperature Pulse Rate 90 89 102 H Respiratory Rate Blood Pressure Blood Pressure [Right] O2 Sat by Pulse 99 99 95 Oximetry 04/30/18 04/30/18 04/30/18 04:39 04:44 04:49 Temperature Pulse Rate 89 89 92 H Respiratory Rate Blood Pressure 126/59 Blood Pressure [Right] O2 Sat by Pulse 99 98 98 Oximetry 04/30/18 04/30/18 04/30/18 04:54 04:55 04:59 Temperature Pulse Rate 88 89 93 H Respiratory Rate Blood Pressure Blood Pressure [Right] O2 Sat by Pulse 99 92 99 Oximetry 04/30/18 04/30/18 04/30/18 05:04 05:09 05:14 Temperature Pulse Rate 86 88 92 H Respiratory Rate Blood Pressure 142/64 Blood Pressure [Right] O2 Sat by Pulse 99 99 100 Oximetry 04/30/18 04/30/18 04/30/18 05:19 05:21 05:24 Temperature Pulse Rate 97 H 95 H 89 Respiratory Rate Blood Pressure Blood Pressure [Right] O2 Sat by Pulse 100 94 100 Oximetry 04/30/18 04/30/18 04/30/18 05:39 05:43 05:49 Temperature Pulse Rate 80 85 85 Respiratory Rate Blood Pressure 112/53 144/70 144/70 Blood Pressure [Right] O2 Sat by Pulse Oximetry 04/30/18 04/30/18 04/30/18 06:39 07:09 07:39 Temperature Pulse Rate 82 82 90 Respiratory Rate Blood Pressure 132/58 122/57 119/57 Blood Pressure [Right] O2 Sat by Pulse Oximetry 04/30/18 04/30/18 04/30/18 07:43 07:49 07:54 Temperature 97.9 F Pulse Rate 97 H 91 H 96 H Respiratory 24 Rate Blood Pressure 141/63 Blood Pressure 141/63 [Right] O2 Sat by Pulse 98 98 99 Oximetry 04/30/18 04/30/18 04/30/18 08:09 08:39 10:09 Temperature Pulse Rate 88 90 86 Respiratory Rate Blood Pressure 127/59 131/73 129/59 Blood Pressure [Right] O2 Sat by Pulse Oximetry 04/30/18 04/30/18 10:39 11:09 Temperature Pulse Rate 84 81 Respiratory Rate Blood Pressure 127/76 139/78 Blood Pressure [Right] O2 Sat by Pulse Oximetry - Exam FHR: auscultation normal - Labs Labs: Abnormal Labs 04/29/18 04/29/18 04/29/18 12:30 14:25 20:48 Sodium 135 L Carbon Dioxide 20 L BUN 5 L Creatinine 0.4 L Glucose 114 H POC Glucose 146 H Albumin 3.4 L U Epithel Cells (Auto) 42.0 H 04/30/18 04/30/18 05:50 10:28 Sodium Carbon Dioxide BUN Creatinine Glucose POC Glucose 110 H 121 H Albumin U Epithel Cells (Auto) Laboratory Results - last 24 hr 04/29/18 04/29/18 04/29/18 12:30 12:30 13:43 WBC RBC Hgb Hct MCV MCH MCHC RDW Plt Count Sodium Potassium Chloride Carbon Dioxide Anion Gap BUN Creatinine Estimated GFR BUN/Creatinine Ratio Glucose POC Glucose 91 Calcium Total Bilirubin Direct Bilirubin AST ALT Alkaline Phosphatase Total Protein Albumin Albumin/Globulin Ratio Urine Color Francine Urine Turbidity Clear Urine pH 6.0 Ur Specific [place] 1.024 Urine Protein 30 mg/dl Urine Glucose (UA) Neg Urine Ketones Neg Urine Blood Neg Urine Nitrite Neg Urine Bilirubin Neg Urine Urobilinogen < 2.0 Ur Leukocyte Esterase Tr Urine WBC (Auto) 4.0 Urine RBC (Auto) 1.0 U Epithel Cells (Auto) 42.0 H Urine Bacteria (Auto) 1+ Calcium Oxalate Crystal 3+ Urine Mucus 3+ Urine Opiates Screen Presumptive negative Urine Methadone Screen Presumptive negative Ur Barbiturates Screen Presumptive negative Ur Phencyclidine Scrn Presumptive negative Ur Amphetamines Screen Presumptive negative U Benzodiazepines Scrn Presumptive negative Urine Cocaine Screen Presumptive negative U Marijuana (THC) Screen Presumptive negative Drugs of Abuse Note Disclamer 04/29/18 04/29/18 04/29/18 14:25 14:25 20:48 WBC 9.2 RBC 3.82 Hgb 10.8 Hct 32.2 MCV 84 MCH 28 MCHC 34 RDW 13.9 Plt Count 247 Sodium 135 L Potassium 3.7 Chloride 100.6 Carbon Dioxide 20 L Anion Gap 18 BUN 5 L Creatinine 0.4 L Estimated GFR > 60 BUN/Creatinine Ratio 13 Glucose 114 H POC Glucose 146 H Calcium 9.1 Total Bilirubin < 0.20 Direct Bilirubin < 0.2 AST 16 ALT 14 Alkaline Phosphatase 76 Total Protein 6.5 Albumin 3.4 L Albumin/Globulin Ratio 1.1 Urine Color Urine Turbidity Urine pH Ur Specific [place] Urine Protein Urine Glucose (UA) Urine Ketones Urine Blood Urine Nitrite Urine Bilirubin Urine Urobilinogen Ur Leukocyte Esterase Urine WBC (Auto) Urine RBC (Auto) U Epithel Cells (Auto) Urine Bacteria (Auto) Calcium Oxalate Crystal Urine Mucus Urine Opiates Screen Urine Methadone Screen Ur Barbiturates Screen Ur Phencyclidine Scrn Ur Amphetamines Screen U Benzodiazepines Scrn Urine Cocaine Screen U Marijuana (THC) Screen Drugs of Abuse Note 04/30/18 04/30/18 05:50 10:28 WBC RBC Hgb Hct MCV MCH MCHC RDW Plt Count Sodium Potassium Chloride Carbon Dioxide Anion Gap BUN Creatinine Estimated GFR BUN/Creatinine Ratio Glucose POC Glucose 110 H 121 H Calcium Total Bilirubin Direct Bilirubin AST ALT Alkaline Phosphatase Total Protein Albumin Albumin/Globulin Ratio Urine Color Urine Turbidity Urine pH Ur Specific [place] Urine Protein Urine Glucose (UA) Urine Ketones Urine Blood Urine Nitrite Urine Bilirubin Urine Urobilinogen Ur Leukocyte Esterase Urine WBC (Auto) Urine RBC (Auto) U Epithel Cells (Auto) Urine Bacteria (Auto) Calcium Oxalate Crystal Urine Mucus Urine Opiates Screen Urine Methadone Screen Ur Barbiturates Screen Ur Phencyclidine Scrn Ur Amphetamines Screen U Benzodiazepines Scrn Urine Cocaine Screen U Marijuana (THC) Screen Drugs of Abuse Note
--- NOTE | 2018-04-30 15:19 | Ultrasound Report ---
FINAL REPORT EXAM: US OB FOLLOW UP HISTORY: efw TECHNIQUE: Transabdominal OB ultrasound. PRIORS: Earliest OB ultrasound March 10, 2018. FINDINGS: Single intrauterine dates 23.0 weeks. DEBBI equals August 27, 2018. This is 1 day older compared to the prior ultrasound and is within normal limits. EFW equals 563 g. Percentile equals 55%. LMP percentile equals %. BPD: 23.2 weeks. HC: 22.5 weeks. AC: 23.4 weeks. FL: 22.4 weeks. Cephalic index: 82.6. Within normal limits.. HC/AC ratio: 1.09 Presentation: Breech. Placenta: Posterior. Grade 0. No previa. heart rate: 152 BPM. Amniotic fluid index: Within normal limits. Closed cervix measures 3.3 cm. IMPRESSION: Single live intrauterine .
--- NOTE | 2018-04-30 15:45 | Consultation ---
History of Present Illness Consult date: 04/30/18 Requesting physician: CRISTHIAN SOLIMAN History of present illness: 27 y/o EGA at 22 6/7 weeks sent in from OB's office with elevated BP's BP's on admission 171/88 and 161/88 Denies H/O CHTN Denies SCHERER's Scotoma or RUQ Pain or Swelling Pos FM's Denies vag bleeding leaking ctx's BP's now stable on Labetalol 200 BID 120-140/60-80's , last BP's - 134/60, 131/66, 137/63, 147/86 PIH labs WNL - Plts at 247, AST/ALT at 16/14, Creat at 0.4, UA Prot at 30 mg 24 Hour urine prot - pending Reports developing GDM - (?? pregest DM) BS's stable fasting 110, PPB at 121, PPL at 113 on Insulin Humulin N 20 am, Novolin R 10 dinner and Humulin N 10 q hs US EFW at 55% OB history - SAB X 2 first tri with D&C X 2 No Med Surg D&C X 2 No STD NKA No C/D/D Past History Past Medical History: diabetes Past Surgical History: no surgical history, D&C - Obstetrical History : 3 Medications and Allergies Allergies Allergy/AdvReac Type Severity Reaction Status Date / Time No Known Allergies Allergy Verified 03/10/18 16:20 Home Medications Medication Instructions Recorded Confirmed Last Taken Type Vit-Fe Fumar-FA [ 1 tab PO QDAY 03/11/18 04/29/18 03/09/18 21: 00 History Vitamin] 1 Aspirin [Aspirin BABY CHEW TAB] 81 mg PO QDAY #30 tab.chew 04/29/18 Unknown Rx Insulin NPH Human Isophane 10 unit SQ QHS 04/29/18 04/29/18 04/28/18 22:00 History [Humulin N] Insulin NPH Human Isophane 20 unit SQ QAMDIAB 04/29/18 04/29/18 04/29/18 08:30 History [Humulin N] Insulin Regular, Human [Novolin R] 10 units SQ QAMDIAB 04/29/18 04/29/18 08:30 History Insulin Regular, Human [Novolin R] 10 units SQ QPM 04/29/18 04/29/18 04/28/18 17 :30 History Labetalol [Normodyne TAB] 200 mg PO BID #60 tablet 04/29/18 Unknown Rx Pediatric Multivitamin No.76 2 tab PO QDAY 04/29/18 04/29/18 04/29/18 08:30 History [Flintstones Complete] Active Meds: Active Medications Aspirin (Baby Aspirin) 81 mg PO QDAY [facility] Last Admin: 04/30/18 10:20 Dose: 81 mg Hydralazine HCl (Apresoline) 5 mg IV Q30MIN PRN PRN Reason: Hypertension Lactated Ringer's (Lactated Ringers) 1,000 mls @ 125 mls/hr IV DIRECT [facility] Insulin Human NPH (Humulin N) 20 unit SUB-Q QAMDIAB [facility] Last Admin: 04/30/18 08:14 Dose: Not Given Insulin Human NPH (Humulin N) 10 unit SUB-Q QHS [facility] Last Admin: 04/29/18 22:10 Dose: 10 unit Insulin Human Regular (Humulin R) 10 units SUB-Q QPMDIAB [facility] Last Admin: 04/29/18 18:18 Dose: 10 units Insulin Human Regular (Humulin R) 10 units SUB-Q QAMDIAB [facility] Last Admin: 04/30/18 08:11 Dose: 10 units Labetalol HCl (Normodyne) 200 mg PO 0600,1800 [facility] Last Admin: 04/30/18 05:43 Dose: 200 mg - Vital Signs Vital signs: Vital Signs Pulse BP 89 171/88 04/29/18 12:36 04/29/18 12:36 Temp Pulse Resp BP Pulse Ox 97.9 F 83 24 142/71 98 04/30/18 07:43 04/30/18 15:40 04/30/18 07:43 04/30/18 15:40 04/30/18 11:46 Results Result Diagrams: 04/29/18 14:25 04/29/18 14:25 Abnormal lab results 04/29/18 04/29/18 04/29/18 Range/Units 12:30 13:58 20:48 POC Glucose 146 H (70-105) U Epithel Cells (Auto) 42.0 H (0-13.0) /HPF Ur Total Protein 24 Hr 220.00 H (2-200) 04/30/18 04/30/18 04/30/18 Range/Units 05:50 10:28 15:17 POC Glucose 110 H 121 H 113 H (70-105) U Epithel Cells (Auto) (0-13.0) /HPF Ur Total Protein 24 Hr (2-200) All other labs normal. Assessment and Plan Impression: 1. [place] IUP at 22 6/7 weeks 2. Gest HTN - R/O Preeclampsia - 24 Hour Urine Pending 3. GDM - ?? Pregest - Reported that her HbA1c was 7.1% in February 4. Borderline Anemia Recommendations 1. 24 Hour urine pending 2. If BP's remain stable (taken is sitting position) overnight would allow dc home with close A-P Surveillance Patient should take BP's every other day Call for S/S of PIH - SCHERER's Scotoma or RUQ pain Follow up with her OB weekly for PIH labs q week and BP checks Restricted Activity 3. Steroids after 24 weeks for FLM 4. Serial US for growth 5. A-P Testing starting at 28 weeks weekly 6. Iron BID for anemia 7. Patient should get BP cuff - if she can follow instructions above and agrees may allow discharge 8. Continue Labetalol 200 BID 9. Call for elevated BS's - continue Insulin regimen as noted above - 10. Obtain HbA1c -(nurses say lab machine in broken) would obtain early next week at ob's office
[2018-04-30] MEDS: HumuLIN R SUB-Q SCH (16:55)
[2018-04-30 22:11] VITALS: BP 136/65
--- NOTE | 2018-05-01 07:12 | Discharge Summary ---
Providers - Providers Date of Admission: 04/29/18 15:37 Date of discharge: 04/30/18 Attending physician: THOMAS BALTAZAR MD 04/30/18 08:27 Consult to Physician [CONS] Routine Comment: Consulting Provider: RAVEN PATRICK I Physician Instructions: Reason For Exam: poorly controlled diabetic and pre-E at 22 wks Primary care physician: THOMAS BALTAZAR MD Hospitalization Reason for admission: observation, other (chronic hypertension) Delivery: other (undelivered) Discharge diagnosis: other (chronic hypertension, pregestational diabetes, morbid obesity) Hospital course: 27yo admitted for control of blood pressures 180/100s. She was started on Labetolol 200mg PO BID. 24hr urine was collected protein 220mg PIH labs within normal limits. Condition at discharge: Stable Disposition: DC-01 TO HOME OR SELFCARE - Discharge Diagnoses (1) Elevated blood pressure affecting in second trimester, antepartum Status: Acute (2) Type 2 diabetes mellitus affecting in second trimester, antepartum Status: Acute Plan - Discharge Medications Prescriptions: Aspirin [Aspirin BABY CHEW TAB] 81 mg PO QDAY #30 tab.chew Labetalol [Normodyne TAB] 200 mg PO BID #60 tablet - Provider Discharge Summary Activity: routine, other (no strenuous activity) Diet: other (diabetic diet) Additional instructions: [] Smoking cessation referral if applicable(refer to patient education folder for contact #) [] Refer to [facility] Booklet Call your doctor immediately for: * Fever > 100.5 * Heavy vaginal bleeding ( >1 pad per hour) * Severe persistent headache * Shortness of breath * Reddened, hot, painful area to leg or breast * Drainage or odor from incision. * Keep incision clean and dry at all times and follow doctor's instructions regarding bathing/showering - Follow up plan Follow up: THOMAS BALTAZAR MD [Primary Care Provider] - 7 Days Forms: [facility] Discharge Summary
== END 2018-04-30 22:42 | disposition home or self-care (01) ==
LOC: TRG 12:05 → LD 12:06 → TRG 15:36 → LD 15:37
PROVIDERS: ADMIT Obstetrics & Gynecology; ATTEND Obstetrics & Gynecology
DX: O13.2 Gestational [pregnancy-induced] hypertension without significant proteinuria, second trimester (principal); O24.112 Pre-existing type 2 diabetes mellitus, in pregnancy, second trimester; E11.8 Type 2 diabetes mellitus with unspecified complications; O99.212 Obesity complicating pregnancy, second trimester; E66.01 Morbid (severe) obesity due to excess calories; O99.012 Anemia complicating pregnancy, second trimester; D64.89 Other specified anemias; Z68.41 Body mass index [BMI] 40.0-44.9, adult; Z3A.22 22 weeks gestation of pregnancy; Z79.899 Other long term (current) drug therapy
CPT/HCPCS: 36415; 76816; 80048; 80074; 80307; 81001; 82962; 83036; 84156; 85027; 96372; G0378; J1815